=== PATIENT | female | born 1980 | race Caucasian/White ===

== ENCOUNTER 2022-03-04 18:05 | Emergency (ER) | payer MEDICAID ==
[~2022-03-04] VITALS: Ht 152.4 cm; Wt 77.0 kg
[2022-03-04 18:11] VITALS: BP 102/78
[2022-03-04 19:53] LABS: BASOPHILS % 0.4 % (0.0-2.0); EOSINOPHILS % 1.9 % (0.0-5.0); HEMATOCRIT. 36.1 % (36.0-48.0); HEMOGLOBIN. 11.9 g/dL (12.0-16.0); LYMPHOCYTES % 22.8 % (20.0-50.0); MEAN CORPUSCULAR HEMOGLOBIN 28.8 pg (28.0-32.0); MEAN CORPUSCULAR VOLUME 87.3 fL (81.0-99.0); MEAN PLATELET VOLUME 7.4 fl (7.4-10.4); MONOCYTES % 4.2 % (2.0-8.0); NEUTROPHILS % 70.7 % (40.0-76.0); PLATELET 331 x1000/uL (130-400); RED BLOOD CELL COUNT 4.13 mill/uL (4.2-5.4); RED CELL DISTRIBUTION WIDTH 13.8 % (11.6-14.6)
[2022-03-04 20:08] LABS: CHLORIDE 103 mEq/L (98-107)
[2022-03-04 20:09] LABS: B-HCG QUANTITATIVE 10 mIU/mL (<3)
== END 2022-03-04 22:45 | disposition home or self-care (01) ==
LOC: ER 18:05
DX: N93.9 Abnormal uterine and vaginal bleeding, unspecified (principal)
CPT/HCPCS: 36415; 76801; 80053; 84702; 85025; 86850; 86900; 99284